=== PATIENT | male | born 1955 | race Caucasian/White ===

== ENCOUNTER 2017-03-16 11:40 | Emergency (ER) | payer OTHER ==
[~2017-03-16] VITALS: Ht 185.4 cm; Wt 84.4 kg
[2017-03-16 11:43] VITALS: BP 188/106; PULSE 52; RESP 16; TEMP 97.7; O2SAT 100
[2017-03-16] MEDS ORDERED: SODIUM CHLOR 0.9% 1000 ML INJ 1,000 ML IV SCH (11:57)
[2017-03-16] MEDS ORDERED: KETOROLAC TROMETHAMINE 30 MG/ML (IVP) VIAL IVP ONE (12:00)
[2017-03-16] MEDS ORDERED: ONDANSETRON HCL 4 MG/2 ML VIAL IVP ONE (12:00)
[2017-03-16] MEDS ORDERED: MORPHINE SULFATE 4 MG/ML INJ IV PUSH ONE ×2 (12:00→12:45)
[2017-03-16] MEDS ORDERED: SODIUM CHLORIDE 0.9% FLUSH 10 ML FLUSH IV FLUSH PRN (12:00)
--- NOTE | 2017-03-16 12:05 | PD ---
HPI Chief Complaint: Abdominal Pain Time Seen by Provider: 11:49 Travel History International Travel<30 days: No Contact w/Intl Traveler<30days: No Traveled to known affect area: No History of Present Illness HPI The patient is a 61-year-old male who presents to the emergency department for abdominal pain. The patient states his abdominal pain started approximately 2 hours prior to arrival. The abdominal pain is located in the left lower quadrant of the abdomen, nonradiating, associated mild diaphoresis and nausea, denies any vomiting. The patient felt like he needed to have a bowel movement earlier today, had a small bowel movement, and then felt like he needed to have one once again. He states there is no bowel movement, therefore , had an enema with no relief. The patient's last normal bowel movement was earlier this morning. The patient denies any diarrhea, dysuria, frequency, urgency, or hematuria. The patient does have a history of prior nephrolithiasis , denies any history of diverticulitis. He denies any history of previous abdominal surgeries. He denies any associated fever, chills, but was slightly diaphoretic earlier today with pain. PFSH Past Medical History Hx Anticoagulant Therapy: Yes (Plavix) Cardiovascular Problems: Yes (STENT) Past Surgical History Narrative Surgical Previous stent placement Social History Tobacco Use: No Allergies-Medications (Allergen,Severity, Reaction): Coded Allergies: Amoxicillin (Verified Allergy, Mild, Rash, 03/16/17) Reported Meds & Prescriptions Reported Meds & Active Scripts Active Reported Plavix (Clopidogrel Bisulfate) 75 Mg Tab 75 Mg PO DAILY Lipitor (Atorvastatin Calcium) 80 Mg Tab 80 Mg PO HS Ranitidine (Ranitidine HCl) 150 Mg Tab 150 Mg PO DAILY Aspirin 325 Mg Tab 325 Mg PO DAILY Carvedilol 6.25 Mg Tab 6.25 Mg PO BID Lisinopril 20 Mg Tab 20 Mg PO BID Review of Systems Except as stated in HPI: all other systems reviewed are Neg General / Constitutional: No: Fever HENT: No: Lightheadedness Cardiovascular: Positive: Diaphoresis, No: Chest Pain or Discomfort Respiratory: No: Shortness of Breath Gastrointestinal: Positive: Nausea, Abdominal Pain, No: Vomiting, Diarrhea Genitourinary: No: Urgency, Frequency, Dysuria Physical Exam Narrative GENERAL: Awake, alert, pleasant 61-year-old male who appears his stated age and is in no acute respiratory distress. SKIN: Focused skin assessment warm/dry. HEAD: Atraumatic. Normocephalic. EYES: Pupils equal and round. No scleral icterus. No injection or drainage. ENT: No nasal bleeding or discharge. Mucous membranes pink and moist. NECK: Trachea midline. No JVD. CARDIOVASCULAR: Regular rate and rhythm. No murmur appreciated. RESPIRATORY: No accessory muscle use. Clear to auscultation. Breath sounds equal bilaterally. GASTROINTESTINAL: Abdomen soft, minimal left lower quadrant pain. No guarding or rigidity. Back: No CVA tenderness. MUSCULOSKELETAL: No obvious deformities. No clubbing. No cyanosis. No edema. NEUROLOGICAL: Awake and alert. No obvious cranial nerve deficits. Motor grossly within normal limits. Normal speech. PSYCHIATRIC: Appropriate mood and affect; insight and judgment normal. Data Data Last Documented VS Vital Signs Date Time Temp Pulse Resp B/P Pulse Ox O2 Delivery O2 Flow Rate FiO2 03/16/17 12:45 99 Room Air 03/16/17 12:35 48 18 190/97 03/16/17 11:43 97.7 Orders Complete Blood Count With Diff (03/16/17 11:57) Comprehensive Metabolic Panel (03/16/17 11:57) Lipase (03/16/17 11:57) Lactic Acid (03/16/17 11:57) Urinalysis - C+S If Indicated (03/16/17 11:57) Ct Abd/Pel W/O Iv Contrast (03/16/17 11:57) Iv Access Insert/Monitor (03/16/17 11:57) Ecg Monitoring (03/16/17 11:57) Oximetry (03/16/17 11:57) Morphine Inj (Morphine Inj) (03/16/17 12:00) Ondansetron Inj (Zofran Inj) (03/16/17 12:00) Sodium Chlor 0.9% 1000 Ml Inj (Ns 1000 M (03/16/17 11:57) Sodium Chloride 0.9% Flush (Ns Flush) (03/16/17 12:00) Ketorolac Inj (Toradol Inj) (03/16/17 12:00) Morphine Inj (Morphine Inj) (03/16/17 12:45) Labs Laboratory Tests Test 03/16/17 03/16/17 12:10 12:15 White Blood Count 8.5 TH/MM3 Red Blood Count 5.14 MIL/MM3 Hemoglobin 15.4 GM/DL Hematocrit 46.3 % Mean Corpuscular Volume 90.1 FL Mean Corpuscular Hemoglobin 29.9 PG Mean Corpuscular Hemoglobin 33.2 % Concent Red Cell Distribution Width 12.5 % Platelet Count 263 TH/MM3 Mean Platelet Volume 7.9 FL Neutrophils (%) (Auto) 77.1 % Lymphocytes (%) (Auto) 10.9 % Monocytes (%) (Auto) 8.1 % Eosinophils (%) (Auto) 3.1 % Basophils (%) (Auto) 0.8 % Neutrophils # (Auto) 6.5 TH/MM3 Lymphocytes # (Auto) 0.9 TH/MM3 Monocytes # (Auto) 0.7 TH/MM3 Eosinophils # (Auto) 0.3 TH/MM3 Basophils # (Auto) 0.1 TH/MM3 CBC Comment DIFF FINAL Differential Comment Sodium Level 143 MEQ/L Potassium Level 4.3 MEQ/L Chloride Level 108 MEQ/L Carbon Dioxide Level 27.9 MEQ/L Anion Gap 7 MEQ/L Blood Urea Nitrogen 17 MG/DL Creatinine 1.20 MG/DL Estimat Glomerular Filtration 61 ML/MIN Rate Random Glucose 116 MG/DL Lactic Acid Level 1.8 mmol/L Calcium Level 9.5 MG/DL Total Bilirubin 0.7 MG/DL Aspartate Amino Transf 43 U/L (AST/SGOT) Alanine Aminotransferase 75 U/L (ALT/SGPT) Alkaline Phosphatase 74 U/L Total Protein 7.4 GM/DL Albumin 3.9 GM/DL Lipase 191 U/L Urine Collection Type CLEAN CATCH Urine Color YELLOW Urine Turbidity SLIGHT Urine pH 6.0 Urine Specific [place] 1.015 Urine Protein TRACE mg/dL Urine Glucose (UA) NEG mg/dL Urine Ketones NEG mg/dL Urine Occult Blood LARGE Urine Nitrite NEG Urine Bilirubin NEG Urine Leukocyte Esterase NEG Urine RBC 100-200 /hpf Urine WBC 6-8 /hpf Urine Squamous Epithelial 6-8 /hpf Cells Urine Transitional Epithelial 0-5 /hpf Cells Microscopic Urinalysis Comment CULT NOT INDICATED Urine Collection Time 12:15 MDM Medical Decision Making Medical Screen Exam Complete: Yes Emergency Medical Condition: Yes Medical Record Reviewed: Yes Interpretation(s) Last Impressions Abdomen/Pelvis CT 03/16/17 1157 Signed Impressions: Service Date/Time: [place], March 16, 2017 12:16 - CONCLUSION: 1. 4-5 mm nonobstructing calculus left proximal ureter. 2. Diverticulosis without diverticulitis. 3. Left renal cysts. 4. 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 5. Status post cholecystectomy. Ken Hebert MD Laboratory Tests Test 03/16/17 03/16/17 12:10 12:15 White Blood Count 8.5 TH/MM3 Red Blood Count 5.14 MIL/MM3 Hemoglobin 15.4 GM/DL Hematocrit 46.3 % Mean Corpuscular Volume 90.1 FL Mean Corpuscular Hemoglobin 29.9 PG Mean Corpuscular Hemoglobin 33.2 % Concent Red Cell Distribution Width 12.5 % Platelet Count 263 TH/MM3 Mean Platelet Volume 7.9 FL Neutrophils (%) (Auto) 77.1 % Lymphocytes (%) (Auto) 10.9 % Monocytes (%) (Auto) 8.1 % Eosinophils (%) (Auto) 3.1 % Basophils (%) (Auto) 0.8 % Neutrophils # (Auto) 6.5 TH/MM3 Lymphocytes # (Auto) 0.9 TH/MM3 Monocytes # (Auto) 0.7 TH/MM3 Eosinophils # (Auto) 0.3 TH/MM3 Basophils # (Auto) 0.1 TH/MM3 CBC Comment DIFF FINAL Differential Comment Sodium Level 143 MEQ/L Potassium Level 4.3 MEQ/L Chloride Level 108 MEQ/L Carbon Dioxide Level 27.9 MEQ/L Anion Gap 7 MEQ/L Blood Urea Nitrogen 17 MG/DL Creatinine 1.20 MG/DL Estimat Glomerular Filtration 61 ML/MIN Rate Random Glucose 116 MG/DL Lactic Acid Level 1.8 mmol/L Calcium Level 9.5 MG/DL Total Bilirubin 0.7 MG/DL Aspartate Amino Transf 43 U/L (AST/SGOT) Alanine Aminotransferase 75 U/L (ALT/SGPT) Alkaline Phosphatase 74 U/L Total Protein 7.4 GM/DL Albumin 3.9 GM/DL Lipase 191 U/L Urine Collection Type CLEAN CATCH Urine Color YELLOW Urine Turbidity SLIGHT Urine pH 6.0 Urine Specific [place] 1.015 Urine Protein TRACE mg/dL Urine Glucose (UA) NEG mg/dL Urine Ketones NEG mg/dL Urine Occult Blood LARGE Urine Nitrite NEG Urine Bilirubin NEG Urine Leukocyte Esterase NEG Urine RBC 100-200 /hpf Urine WBC 6-8 /hpf Urine Squamous Epithelial 6-8 /hpf Cells Urine Transitional Epithelial 0-5 /hpf Cells Microscopic Urinalysis Comment CULT NOT INDICATED Urine Collection Time 12:15 Differential Diagnosis Differential diagnosis includes diverticulitis, nephrolithiasis, pyelonephritis , complicated UTI, colitis. Narrative Course IV was established, labs are drawn and sent, and the patient was placed on cardiac telemetry monitoring and continuous pulse oximetry monitoring. The patient was administered morphine, Toradol, Zofran, and IV fluids. UA was sent to lab. CT of the abdomen and pelvis was ordered. UA reveals large blood and 100-200 RBCs, 6-8 WBCs, consistent with hematuria, likely secondary to nephrolithiasis. CBC, CMP, lactic acid are unremarkable. CT of the abdomen and pelvis is positive for nephrolithiasis. 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 I discussed the CT findings including the aneurysm and renal cyst with the patient. The patient is traveling back to [place], he will be provided a copy of his CT results and lab results at discharge. He is advised not to drive or drink alcohol on the pain medications. He is advised to take his Flomax at night and to monitor for orthostatic hypotensive symptoms. Return if symptoms worsen or progress. The patient's pain has significantly improved, down to 1/10, he declined a second dose of morphine. Patient is stable for discharge. Diagnosis Primary Impression: Nephrolithiasis Patient Instructions: General Instructions Additional Instructions: Medications as directed. Follow-up with your primary physician. Return if symptoms worsen or progress. Please provide the patient a copy of his CT results and lab results at discharge. Med/Other Pt SpecificInfo: Prescription(s) given Scripts Tamsulosin (Flomax)0.4 Mg Cap0.4 Mg PO HS #7 CAP Ref 0 Prov:Dc Persaud MD 03/16/17 Hydrocodone-Acetaminophen ([place])5-325 mg Tab1 Tab PO Q6H PRN (PAIN) #20 TAB Ref 0 Prov:Dc Persaud MD 03/16/17 Ibuprofen 400 Mg [id number] Mg PO Q6H PRN (PAIN SCALE 1 TO 10) #20 TAB Ref 0 Prov:Dc Persaud MD 03/16/17 Disposition: 01 DISCHARGE HOME Condition: Stable Dc Persaud MD March 16, 2017 12:05
[2017-03-16] MEDS ORDERED: RANI150T PO (12:09)
[2017-03-16] MEDS ORDERED: LISI-515 PO (12:09)
[2017-03-16] MEDS ORDERED: LIPI80TA PO (12:09)
[2017-03-16] MEDS ORDERED: PLAV75TA29 PO (12:09)
[2017-03-16] MEDS ORDERED: CARV6.252 PO (12:09)
[2017-03-16] MEDS ORDERED: ASPI325T PO (12:09)
[2017-03-16 12:19] LABS: AUTOMATED NEUTROPHIL # 6.5 TH/MM3 (1.8-7.7); BASOPHIL # 0.1 TH/MM3 (0-0.2); BASOPHIL % 0.8 % (0.0-2.0); EOSINOPHIL # 0.3 TH/MM3 (0-0.4); EOSINOPHIL % 3.1 % (0.0-4.0); HEMATOCRIT 46.3 % (39.0-51.0); LYMPH % 10.9 % (9.0-44.0); LYMPHOCYTE # 0.9 TH/MM3 (1.0-4.8); MEAN CELL VOLUME 90.1 FL (80.0-100.0); MEAN CORPUSCULAR HEMOGLOBIN 29.9 PG (27.0-34.0); MEAN CORPUSCULAR HGB CONC 33.2 % (32.0-36.0); MONO % 8.1 % (0.0-8.0); NEUT % 77.1 % (16.0-70.0); PLATELET COUNT 263 TH/MM3 (150-450); RED BLOOD COUNT 5.14 MIL/MM3 (4.50-5.90); RED CELL DISTRIBUTION WIDTH 12.5 % (11.6-17.2); WHITE BLOOD COUNT 8.5 TH/MM3 (4.0-11.0)
[2017-03-16 12:20] LABS: HEMO FLAGS DIFF FINAL
[2017-03-16 12:25] LABS: BLOOD, URINE LARGE (NEG); GLUCOSE,URINE NEG (NEG); KETONE, URINE NEG (NEG); NITRITE,URINE NEG (NEG)
[2017-03-16 12:27] LABS: METHOD OF COLLECTION CLEAN CATCH; URINE COLOR YELLOW (YELLW/STRAW)
[2017-03-16 12:29] LABS: CHLORIDE 108 MEQ/L (98-107); POTASSIUM 4.3 MEQ/L (3.5-5.1); SODIUM (NA) 143 MEQ/L (136-145)
[2017-03-16 12:32] LABS: ANION GAP 7 MEQ/L (5-15); BICARBONATE 27.9 MEQ/L (21.0-32.0)
[2017-03-16 12:33] LABS: RBC, URINE 100-200 /hpf (0-3)
[2017-03-16 12:33] LABS: BLOOD UREA NITROGEN 17 MG/DL (7-18)
[2017-03-16 12:34] LABS: COMMENT (UR) CULT NOT INDICATED; CULTURE IF INDICATED CULT NOT INDICATED; TRANSITIONAL EPI CELLS, URINE 0-5 /hpf
[2017-03-16 12:35] VITALS: BP 190/97; PULSE 48; RESP 18; O2SAT 99
[2017-03-16 12:35] LABS: ALT (GPT) 75 U/L (12-78); AST (GOT) 43 U/L (15-37)
[2017-03-16 12:36] LABS: GLOMERULAR FILTRATION RATE 61 ML/MIN (>89)
[2017-03-16 12:37] LABS: TOTAL BILIRUBIN ADULT 0.7 MG/DL (0.2-1.0)
[2017-03-16 12:38] LABS: ALKALINE PHOSPHATASE 74 U/L (45-117)
[2017-03-16 12:45] VITALS: O2SAT 99
--- NOTE | 2017-03-16 12:54 | RADHPO ---
EXAM DATE/TIME: 03/16/2017 12:16 [facility] COMPARISON: No previous studies available for comparison. INDICATIONS : 2 hours ago patient had a sudden onset of LLQ pain, history of stones 10 years ago. ORAL CONTRAST: No oral contrast ingested. RADIATION DOSE: 17.24 CTDIvol (mGy) MEDICAL HISTORY : Cerebrovascular disease. Hypercholesterolemia. Renal calculi.reflux SURGICAL HISTORY : Coronary artery stent. ENCOUNTER: Initial ACUITY: 1 day PAIN SCALE: 5/10 LOCATION: Left lower quadrant abdomen TECHNIQUE: Volumetric scanning of the abdomen and pelvis was performed. Using automated exposure control and ad justment of the mA and/or kV according to patient size, radiation dose was kept as low as reasonably achievable to obtain optimal diagnostic quality images. FINDINGS: LOWER LUNGS: The visualized lower lungs are clear. There is fat within the wall of left ventricular apical aneurys m. LIVER: Homogeneous density without lesion. There is no dilation of the biliary tree. Cholecystectomy clip. SPLEEN: Normal size without lesion. PANCREAS: Within normal limits. KIDNEYS: Normal in size and shape. There is no mass, stone, or hydronephrosis. Left renal cysts. 4-5 mm calcu vicenta left proximal ureter. ADRENAL GLANDS: Within normal limits. VASCULAR: There is no aortic aneurysm. BOWEL/MESENTERY: Diverticulosis without diverticulitis. There is no free intraperitoneal air or fluid. ABDOMINAL WALL: Within normal limits. RETROPERITONEUM: There is no lymphadenopathy. BLADDER: No wall thickening or mass. REPRODUCTIVE: Within normal limits. INGUINAL: There is no lymphadenopathy or hernia. MUSCULOSKELETAL: Within normal limits for patient age. CONCLUSION: 1. 4-5 mm nonobstructing calculus left proximal ureter. 2. Diverticulosis without diverticulitis. 3. Left renal cysts. 4. 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 5. Status post cholecystectomy. Ken Hebert MD on March 16, 2017 at 12:48 Board Certified Radiologist. This report was verified electronically.
[2017-03-16] MEDS ORDERED: IBUP400T20 PO (13:12)
[2017-03-16] MEDS ORDERED: NORC5TAB PO (13:12)
[2017-03-16] MEDS ORDERED: TAMS5CAP PO (13:12)
[2017-03-16 13:30] VITALS: BP 172/95; PULSE 47; RESP 16; O2SAT 98
== END 2017-03-16 14:15 | disposition home or self-care (01) ==
LOC: PHED 11:40
DX: N20.0 Calculus of kidney (principal); N28.1 Cyst of kidney, acquired; I72.8 Aneurysm of other specified arteries; Z79.01 Long term (current) use of anticoagulants
CPT/HCPCS: 74176; 80053; 81001; 83605; 83690; 85025; 96374; 96375; 99285; J1885; J2270; J2405; J7030